=== PATIENT | male | born 1995 | race Caucasian/White ===

== ENCOUNTER 2016-11-14 15:53 | Emergency (ER) | payer SELFPAY ==
[~2016-11-14] VITALS: Ht 177.8 cm; Wt 54.4 kg
--- NOTE | 2016-11-14 16:10 | NUR ---
pt not cooperative with nihss assessment.
--- NOTE | 2016-11-14 16:28 | NUR ---
Patient discharged to home in stable conditon. Written and verbal after care instructions given. Patient verbalizes understanding of instructions.pt walks in steady gait.
== END 2016-11-14 16:29 | disposition home or self-care (01) ==
LOC: ER 16:00
DX: F19.10 Other psychoactive substance abuse, uncomplicated (principal); R53.1 Weakness; Z59.0 Homelessness
CPT/HCPCS: A4663